=== PATIENT | female | born 1960 ===

== ENCOUNTER → 2020-06-01 | Outpatient (CLI) | payer OTHER | END | disposition home or self-care (01) | LOC: RAD 11:45 | PROVIDERS: ATTEND Pediatrics Neonatal-Perinatal Medicine | DX: M43.8X7 Other specified deforming dorsopathies, lumbosacral region (principal); M54.16 Radiculopathy, lumbar region; M43.16 Spondylolisthesis, lumbar region; M25.559 Pain in unspecified hip ==

== ENCOUNTER → 2020-06-05 | Outpatient (CLI) | payer OTHER | END | disposition home or self-care (01) | LOC: MRI 10:39 | PROVIDERS: ATTEND Pediatrics Neonatal-Perinatal Medicine | DX: M54.16 Radiculopathy, lumbar region (principal); M43.16 Spondylolisthesis, lumbar region | CPT/HCPCS: 72148 ==

== ENCOUNTER 2021-02-19 16:09 | Outpatient (CLI) | payer OTHER | END 2021-02-19 17:00 | disposition home or self-care (01) | LOC: PPH VACUNA 16:09 | PROVIDERS: ATTEND Emergency Medicine Pediatric Emergency Medicine | DX: Z23 Encounter for immunization (principal) ==

== ENCOUNTER 2021-05-23 06:54 | Outpatient (CLI) | payer OTHER | END 2021-05-23 13:43 | disposition home or self-care (01) | LOC: MRI 06:54 | PROVIDERS: ATTEND Neurological Surgery | DX: M54.17 Radiculopathy, lumbosacral region (principal) | CPT/HCPCS: 72158 ==

== ENCOUNTER 2021-05-23 09:47 | Outpatient (CLI) | payer OTHER | END 2021-05-23 09:52 | disposition home or self-care (01) | LOC: LAB 09:47 | PROVIDERS: ATTEND Anesthesiology | DX: Z20.828 Contact with and (suspected) exposure to other viral communicable diseases (principal) ==

== ENCOUNTER 2021-05-25 14:38 | Outpatient (CLI) | payer OTHER | END 2021-05-25 15:30 | disposition home or self-care (01) | LOC: ASH CLINIC 14:38 | PROVIDERS: ATTEND Emergency Medicine | DX: U07.1 COVID-19 (principal); Z23 Encounter for immunization ==

== ENCOUNTER 2021-11-22 10:58 | Outpatient (CLI) | payer OTHER | END 2021-11-22 11:15 | disposition home or self-care (01) | LOC: PPH VACUNA 10:58 | PROVIDERS: ATTEND Emergency Medicine Pediatric Emergency Medicine | DX: Z23 Encounter for immunization (principal) ==

== ENCOUNTER 2022-10-18 10:49 | Outpatient (CLI) | payer OTHER | END 2022-10-18 11:02 | disposition home or self-care (01) | LOC: MRI 10:49 | PROVIDERS: ATTEND Otolaryngology Otology & Neurotology | DX: G43.719 Chronic migraine without aura, intractable, without status migrainosus (principal); M54.2 Cervicalgia | CPT/HCPCS: 70553; 72141; Q9965 ==

== ENCOUNTER 2023-06-25 10:37 | Outpatient (CLI) | payer OTHER | END 2023-06-25 10:56 | disposition home or self-care (01) | LOC: MAMO-SONO 10:37 | DX: M25.561 Pain in right knee (principal); N60.12 Diffuse cystic mastopathy of left breast; N60.11 Diffuse cystic mastopathy of right breast; R68.82 Decreased libido; Z80.3 Family history of malignant neoplasm of breast | CPT/HCPCS: 73718 ==

== ENCOUNTER 2024-03-05 10:45 | Outpatient (CLI) | payer OTHER | END 2024-03-05 10:47 | disposition home or self-care (01) | LOC: RAD 10:45 | DX: S82.232A Displaced oblique fracture of shaft of left tibia, initial encounter for closed fracture (principal) ==